=== PATIENT | female | born 1940 | race Caucasian/White ===

== ENCOUNTER 2018-02-18 14:42 | Emergency (ER) | payer MEDICARE, OTHER ==
[~2018-02-18] VITALS: Ht 152.4 cm; Wt 38.0 kg
[~2018-02-18 14:42] MED LIST: ACET-1 PO; CARB15DR EACHEYE; CITA10TA9 PO; FAMO20TA8 PO; LEVO100T9 PO; TRAZ-218 PO
[2018-02-18 15:42] LABS: HEMATOCRIT 34.2 % (35.0-45.0); HEMOGLOBIN 11.4 g/dl (12.0-16.0); MEAN CORPUSCULAR HEMOGLOBIN 33.1 PG (27.0-31.0); MEAN CORPUSCULAR HGB CONC 33.1 % (33.0-36.5); MEAN CORPUSCULAR VOLUME 99.8 FL (78-98); MEAN PLATELET VOLUME 9.1 FL (7.4-10.4); PLATELET COUNT 213 X10'3 (140-440); RED BLOOD COUNT 3.43 X10'6 (4.20-5.60); RED CELL DISTRIBUTION WIDTH 17.4 % (11.5-14.5); WHITE BLOOD COUNT 4.8 X10'3 (4.5-11.0)
[2018-02-18 15:56] LABS: ALANINE AMINOTRANSFERASE 22 U/L (12-78); ALBUMIN 3.7 G/DL (3.4-5.0); ALBUMIN/GLOBULIN RATIO 1.1 (1.1-1.5); ALKALINE PHOSPHATASE 46 IU/L (46-116); ANION GAP 8 (8-16); ASPARTATE AMINO TRANSFERASE 19 U/L (10-37); BILIRUBIN,TOTAL 0.2 MG/DL (0.1-1.0); BLOOD UREA NITROGEN 24 MG/DL (7-18); BUN/CREATININE RATIO 23.1 (6.6-38.0); CALCIUM 9.3 MG/DL (8.5-10.1); CHLORIDE 105 MMOL/L (99-107); CREATININE 1.04 MG/DL (0.40-0.90); GLUCOSE 95 MG/DL (70-104); POTASSIUM 4.1 MMOL/L (3.5-5.1); SODIUM 142 MMOL/L (135-145); TOTAL CARBON DIOXIDE 29.2 MMOL/L (24-32); TOTAL PROTEIN 7.1 G/DL (6.4-8.2); eGFR 51 ML/MIN
[2018-02-18 16:05] LABS: ETHANOL < 0.010 GM/DL (0.0-0.010); TOTAL CELLS COUNTED 100
[2018-02-18 16:06] LABS: ANISOCYTOSIS 1+; PLATELET ESTIMATE NORMAL
[2018-02-18 16:07] LABS: ELLIPTOCYTES FEW; TARGET CELLS 1+
[2018-02-19 03:51] LABS: CLARITY,URINE CLEAR (Clear); COLOR,URINE YELLOW (Yellow); GLUCOSE, URINE NEGATIVE (Neg); KETONES,URINE NEGATIVE (Neg); LEUKOCYTE ESTERASE ,URINE NEGATIVE (Neg); NITRITES, URINE NEGATIVE (Neg); OCCULT BLOOD,URINE NEGATIVE (Neg); PROTEIN,URINE NEGATIVE (Neg); UROBILINOGEN,URINE 0.2 E.U/dL (0.2-1.0)
[2018-02-19 03:54] LABS: UA COLLECTION TYPE VOIDED
[2018-02-19 04:00] LABS: URINE AMPHETAMINE SCREEN NEGATIVE (Neg); URINE BARBITUATE SCREEN NEGATIVE (Neg); URINE BENZODIAZEPINES SCREEN NEGATIVE (Neg); URINE CANNABINOID SCREEN NEGATIVE (Neg); URINE COCAINE SCREEN NEGATIVE (Neg); URINE METHADONE SCREEN NEGATIVE (Neg); URINE OPIATE SCREEN NEGATIVE (Neg); URINE PHENCYCLIDINE SCREEN NEGATIVE (Neg)
[2018-02-19] MEDS ORDERED: FAMO20TA8 PO (04:12)
[2018-02-19] MEDS ORDERED: TRAZ-218 PO (04:12)
[2018-02-19] MEDS ORDERED: CITA10TA71 PO (04:12)
[2018-02-19] MEDS ORDERED: ACET-3067 PO (04:12)
[2018-02-19] MEDS ORDERED: LEVO100T PO (04:12)
[2018-02-19] MEDS ORDERED: CARB15DR95 OP (04:12)
[2018-02-19] MEDS ORDERED: traZODone 50mg tablet PO PRN (05:55)
[2018-02-19] MEDS ORDERED: CARBOXYMETHYLCELLULOSE SODIUM 15 ML DROPS EACHEYE PRN (05:55)
[2018-02-19] MEDS: levoTHYROXINE 100mcg tablet PO SCH (07:56)
[2018-02-19] MEDS: famotidine 20mg tablet PO SCH ×2 (07:56→20:11)
[2018-02-19] MEDS: CITALOpram 10mg tablet PO SCH ×2 (07:56→07:58)
[2018-02-19] MEDS: acetaminophen w/codeine (30MG) #3 tablet PO PRN (16:17)
[2018-02-20] MEDS ORDERED: acetaminophen w/codeine (30MG) #3 tablet PO ONE (07:40)
[2018-02-20] MEDS: famotidine 20mg tablet PO SCH ×2 (07:42→20:49)
[2018-02-20] MEDS: levoTHYROXINE 100mcg tablet PO SCH (07:42)
[2018-02-20] MEDS: CITALOpram 10mg tablet PO SCH (07:43)
[2018-02-20] MEDS: acetaminophen w/codeine (30MG) #3 tablet PO PRN (21:57)
[2018-02-21] MEDS: CITALOpram 10mg tablet PO SCH (08:00)
[2018-02-21] MEDS: levoTHYROXINE 100mcg tablet PO SCH (10:32)
[2018-02-21] MEDS: famotidine 20mg tablet PO SCH ×2 (10:32→20:46)
[2018-02-21] MEDS ORDERED: ibuprofen tablet 400 MG TABLET PO PRN (12:35)
[2018-02-21] MEDS: ibuprofen 200mg tablet PO PRN (12:44)
[2018-02-21] MEDS: acetaminophen w/codeine (30MG) #3 tablet PO PRN (20:52)
[2018-02-22] MEDS: CITALOpram 10mg tablet PO SCH (08:00)
[2018-02-22] MEDS: levoTHYROXINE 100mcg tablet PO SCH (09:39)
[2018-02-22] MEDS: famotidine 20mg tablet PO SCH ×2 (09:39→19:58)
[2018-02-22] MEDS: ibuprofen 200mg tablet PO PRN (17:36)
[2018-02-23] MEDS: acetaminophen w/codeine (30MG) #3 tablet PO PRN (05:09)
[2018-02-23] MEDS: CITALOpram 10mg tablet PO SCH (08:00)
[2018-02-23] MEDS: famotidine 20mg tablet PO SCH ×2 (08:25→20:36)
[2018-02-23] MEDS: levoTHYROXINE 100mcg tablet PO SCH (10:16)
[2018-02-23] MEDS: ibuprofen 200mg tablet PO PRN ×2 (11:21→20:56)
[2018-02-24] MEDS: acetaminophen w/codeine (30MG) #3 tablet PO PRN ×2 (00:39→23:34)
[2018-02-24] MEDS: famotidine 20mg tablet PO SCH ×3 (07:34→20:18)
[2018-02-24] MEDS: levoTHYROXINE 100mcg tablet PO SCH (07:34)
[2018-02-24] MEDS: CITALOpram 10mg tablet PO SCH (07:35)
[2018-02-24] MEDS: ibuprofen 200mg tablet PO PRN ×2 (11:34→20:19)
[2018-02-25] MEDS: levoTHYROXINE 100mcg tablet PO SCH ×2 (08:00→08:53)
[2018-02-25] MEDS: CITALOpram 10mg tablet PO SCH (08:43)
[2018-02-25] MEDS: famotidine 20mg tablet PO SCH ×2 (08:43→19:55)
[2018-02-25] MEDS: ibuprofen 200mg tablet PO PRN (17:49)
[2018-02-26] MEDS: acetaminophen w/codeine (30MG) #3 tablet PO PRN (00:01)
[2018-02-26] MEDS: ibuprofen 200mg tablet PO PRN ×2 (07:41→21:31)
[2018-02-26] MEDS: levoTHYROXINE 100mcg tablet PO SCH (07:41)
[2018-02-26] MEDS: CITALOpram 10mg tablet PO SCH (07:41)
[2018-02-26] MEDS: famotidine 20mg tablet PO SCH ×2 (07:41→21:28)
[2018-02-27 06:10] VITALS: BP 154/60
[2018-02-27] MEDS: acetaminophen w/codeine (30MG) #3 tablet PO PRN (07:01)
[2018-02-27] MEDS: famotidine 20mg tablet PO SCH (07:02)
[2018-02-27] MEDS: levoTHYROXINE 100mcg tablet PO SCH (07:02)
[2018-02-27] MEDS: CITALOpram 10mg tablet PO SCH (07:04)
[2018-02-27] MEDS: ibuprofen 200mg tablet PO PRN (11:09)
[2018-02-27] MEDS ORDERED: polyvinyl alcohol ophthalmic drops 15ml bottle EACHEYE PRN (12:30)
== END 2018-02-27 18:32 ==
LOC: ER 14:43
DX: F32.9 Major depressive disorder, single episode, unspecified (principal); R45.851 Suicidal ideations; E03.8 Other specified hypothyroidism; Z88.0 Allergy status to penicillin; Z88.3 Allergy status to other anti-infective agents; Z79.899 Other long term (current) drug therapy; Z88.8 Allergy status to other drugs, medicaments and biological substances
CPT/HCPCS: 36415; 80053; 80305; 80320; 81003; 84443; 85025; 99285